=== PATIENT | female | born 1970 | race Caucasian/White ===

== ENCOUNTER 2023-11-13 14:50 | Outpatient (AMB) | payer BC, SELFPAY ==
--- NOTE | 2023-11-13 14:51 | A.OFFPC_ITS ---
Vital Signs 11/13/23 14:53 Height 5 ft 4 in Weight 133 lb 6 oz BMI 22.9 BP 126/74 Blood Pressure Location Lt brachial Position Sitting Pulse 87 Pulse Source Pulse Oximeter Pulse Oximetry (%) 96 Oxygen Delivery Method Room Air Intake Visit Reasons: NPV/ Discuss medication Allergies naproxen Allergy (Intermediate, Verified 11/13/23 14:55) Nausea and Vomiting Sulfa (Sulfonamide Antibiotics) Allergy (Intermediate, Verified 11/13/23 14:55) Hives Tobacco use date assessed: 11/13/23 Dental Screening Dental Screen Date: 11/13/23 Did you have a dental visit in the last 12 months?: Yes Did you have a dental problem in the last 6 months where you did not have access to dental care?: No Was dental information given to patient?: Patient has dentist HPI NPV/ Discuss medication HPI Details New patient Prior PCP:? Arnaud Merchant [facility], [place]bin Webb in [facility], [address] [facility] Last office visit/CPE: 1.5 yrs Acute issue(s): Needs?refill?of?escitalopram PMHx: Anxiety/Depression; on Escitalopram, Back injury SurgHx: FHx: Mom: COPD, cancer - unknown. Dad: Healthy. SocHx: Smoked only in college. EtOH weekends, 1-2 dr. Kelly CASTILLO [facility] Surgical History (Updated 11/13/23 @ 14:58 by Shanna Tony MA) H/O section Family History (Updated 11/13/23 @ 15:00 by Shanna Tony MA) Mother COPD (chronic obstructive pulmonary disease) Father Hypertension Brother Hypertension Social History (Updated 11/13/23 @ 14:58 by Shanna Tony MA) Household Members Other:: daughter Housing: House Alcohol intake: current Alcohol intake frequency: a few times a week Alcohol type: hard liquor Patient Tobacco Use Status: Never used Tobacco e-Cigarette/Vaping Use: Never Used Substance Use Type: Marijuana Current occupational status: employed Current occupation: human resources safety manager Cognitive needs: No Hearing needs: No Vision needs: Yes Questionnaire PHQ-9 Over the last 2 weeks, how often have you been bothered by any of the following problems? 1. Little interest or pleasure in doing things: nearly every day 2. Feeling down, depressed, or hopeless: several days 3. Trouble falling or staying asleep, or sleeping too much: not at all 4. Feeling tired or having little energy: not at all 5. Poor appetite or overeating: several days 6. Feeling bad about yourself - or that you are a failure or have let yourself or your family down: not at all 7. Trouble concentrating on things, such as reading the newspaper or watching television: nearly every day 8. Moving or speaking so slowly that other people could have noticed. Or the opposite - being so fidgety or restless that you have been moving around a lot more than usual: several days 9. Thoughts that you would be better off or of hurting yourself in some way: not at all Total score: 9 Depression Screening Interpretation: Positive Depression Screening Follow-up: In treatment (Taking?escitalopram-refilled. Declines?referral?for?therapy) Depression Screening Done: Yes [id number] - PHQ-9 Billing: Yes Source: Developed by Drs. Michael Mcmahon, Ester Haley, Loyd Renee and colleagues, with an educational sammy from [employer]. Thrive Questionnaire Date Thrive assessed: 11/13/23 I am a: Patient What is your living situation today?: I have a steady place to live Within the past 12 months, did the food you bought not last and you didn't have the money to get more?: Never true Within the past 12 months, did you worry whether your food would run out before you got money to buy more?: Never true Do you have trouble paying for medicines?: No Do you have trouble getting transportation to medical appointments?: No Do you have trouble paying your heating and electricity bill?: No Do you have trouble taking care of your child, family member or friend?: No Do you have trouble with day-to-day activities such as bathing, preparing meals, shopping, managing finances, etc.?: No Are you currently unemployed and looking for a job?: No Are you interested in more education?: Yes THRIVE Score: 0 AUDIT C Alcohol Use Questionnaire (AUDIT-C) 1. How often do you have a drink containing alcohol?: 2-4 times a month 2. How many drinks containing alcohol do you have on a typical day when you are drinking?: 1 or 2 3. How often do you have six or more drinks on one occasion?: Never Total Score: 2 MACEY-7 AMB Questionnaire MACEY-7 Date MACEY - 7 assessed: 11/13/23 Feeling nervous, anxious, or on edge: 2 = More than half the days Not being able to stop or control worryin = Several days Worrying too much about different things: 2 = More than half the days Trouble relaxin = Nearly every day Being so restless that it is hard to sit still: 3 = Nearly every day Becoming easily annoyed or irritable: 2 = More than half the days Feeling afraid as if something awful might happen: 0 = Not at all Total MACEY-7 score (0-4 normal; 5-9 mild; 10-14 moderate; 15-21 severe): 13 Source: Developed by Drs. Michael Mcmahon, Ester Haley, Loyd Renee and colleagues, with an educational sammy from [employer]. MACEY-7 Assessment Billing MACEY-7 Assessment Tool: MACEY-7 Assessment 84091 Review of Systems Const Denies chills, Denies fatigue, Denies fever(s), Denies headache(s) and Denies weakness ENT Denies dizziness and Denies headache(s) Card Denies chest pain, Denies lightheadedness, Denies dyspnea and Denies other (Pal pitations) Resp Denies cough, Denies dyspnea, Denies wheezing and Denies other ( shortness of breath) Musc Denies numbness and Denies tingling Neuro Denies dizziness, Denies headache(s), Denies numbness, Denies tingling, Denies paresthesias and Denies weakness Psych Denies anxiety and Denies depression Endo Denies fatigue Aller/Immun Denies wheezing Physical exam (Primary Care) Vital Signs: Last Vital Signs Pulse 87 11/13/23 14:53 BP 126/74 11/13/23 14:53 Pulse Ox 96 11/13/23 14:53 Oxygen Delivery Method Room Air 11/13/23 14:53 BMI result Body Mass Index 22.9 Tobacco/Smoking Status: Tobacco use Status Tobacco use date assessed 11/13/23 11/13/23 15:06 Patient Tobacco Use Status Never used Tobacco 11/13/23 15:06 e-Cigarette/Vaping Use Never Used 11/13/23 14:57 PHQ-9: PHQ-9 Score PHQ-9: Total score 9 11/13/23 15:15 Depression Screening Interpretation: Positive Depression Screening Follow-up: In treatment (Taking?escitalopram-refilled. Declines?referral?for?therapy) Thrive Assessment: Date of Thrive Assessment Date Thrive assessed 11/13/23 11/13/23 15:06 Const General: no acute distress and well developed Nutritional Appearance: well nourished Orientation/consciousness: patient oriented x3 HENMT Head: Yes normocephalic and Yes atraumatic Eyes General: appearance normal, both eyes and all related structures Pupils: Equal, round and reactive pupils present EOM: EOMs intact bilaterally Resp Effort & Inspection: normal respiratory effort Auscultation: clear to auscultation bilaterally Cardio Rate: regular rate Rhythm: regular rhythm Heart sounds: S1 normal heart sound present, S2 normal heart sound present, no gallops, no murmurs and no rubs Neuro General: patient oriented x3 and gait normal Cranial nerves: Yes Equal, round and reactive pupils present Psych Affect: normal affect Assessment and Plan Assessment & Plan (1) Anxiety with depression: Code(s): F41.8 - Other specified anxiety disorders Plan: Taking?escitalopram?and?this?was?refilled?today. Patient?says?she?feels?stable. Declines?referral?for?therapist She?is?also?using?medical?marijuana?which?she?says?helps. (2) Cellulitis: Code(s): L03.90 - Cellulitis, unspecified Plan: Mild?left?earlobe?cellulitis Can?start?Bactrim Warm?soaks (3) Laboratory exam ordered as part of routine general medical examination: Code(s): Z00.00 - Encounter for general adult medical examination without abnormal findings Plan: Check?lab Orders: Orders TSH reflex Free T4 Today Z00.00 - Encounter for general adult medical examination without abnormal findings UA and rflx microscopic Today Z00.00 - Encounter for general adult medical examination without abnormal findings Vitamin D 25-OH Total Today E55.9 - Vitamin D deficiency, unspecified Comprehensive [place]. Panel Fast Today Z00.00 - Encounter for general adult medical examination without abnormal findings Complete Blood Count Auto Diff Today Z00.00 - Encounter for general adult medical examination without abnormal findings Lipid Panel Today Z00.00 - Encounter for general adult medical examination without abnormal findings Microalbumin, Random (w Creat) Today I10 - Essential (primary) hypertension Medications: New escitalopram oxalate 10 mg PO DAILY 30 tabs 2RF 30 days sulfamethoxazole-trimethoprim 800-160 mg (Bactrim DS) 1 tab PO Q12H 20 tabs 0RF 10 days Coding Level of Care Code New Pt Level 3 (04709) Diagnoses Anxiety with depression F41.8 Cellulitis L03.90 Laboratory exam ordered as part of routine general medical examination Z00.00 Additional Codes MACEY-7 Assessment Billing - MACEY-7 Assessment Tool: MACEY-7 Assessment [id number] ([id number])
[2023-11-13 14:53] VITALS: BP 126/74; PULSE 87; O2SAT 96; BMI 22.9
== END 2023-11-13 15:48 | disposition home or self-care (01) ==
PROVIDERS: PCP Family Medicine; Visit Provider Family Medicine
DX: L03.90 Cellulitis, unspecified (principal); F41.8 Other specified anxiety disorders
CPT/HCPCS: 96127; 99203

== ENCOUNTER 2024-03-11 12:00 | Outpatient (AMB) | payer BC, SELFPAY ==
[2024-03-11 12:23] VITALS: BP 140/77; PULSE 78; BMI 22.2
--- NOTE | 2024-03-11 12:23 | MHC.PC.OV ---
Vital Signs 03/11/24 12:23 Height 5 ft 4 in Weight 129 lb 8 oz BMI 22.2 BP 140/77 H Blood Pressure Location Lt brachial Position Sitting Pulse 78 Pulse Source Pulse Oximeter Intake Visit Reasons: CPE Intake Note: Patient is here for her physical. She states she was not able to get her labs, will try to get it done this weekend. Patient would like 90 day refill of the escitalopram. Allergies naproxen Allergy (Intermediate, Verified 03/11/24 12:27) Nausea and Vomiting Sulfa (Sulfonamide Antibiotics) Allergy (Intermediate, Verified 03/11/24 12:27) Hives Medication List - Last Reconciled 03/11/24 by Sebas Mendoza MD escitalopram oxalate 10 mg PO DAILY 30 days Tobacco use date assessed: 11/13/23 Dental Screening Dental Screen Date: 11/13/23 HPI CPE HPI Details 53 y/o female presents for a CPE with f/u labs and health maintenance. No recent labs to review. Recent cologuard test normal. She follows up with her Ob-Computer System Technician yearly. HPI Comments History of Present Illness Details Documentation assistance for Sebas Mendoza MD, was provided by Sarbjit Mukherjee, [employer] on 03/11/2024 at 12:45 PM EST. I, Dr. Mendoza, have read, observed, and verified documentation. [facility] Surgical History (Updated 11/13/23 @ 14:58 by Shanna Tony CMA) H/O section Family History (Updated 11/13/23 @ 15:00 by Shanna Tony CMA) Mother COPD (chronic obstructive pulmonary disease) Father Hypertension Brother Hypertension Social History (Updated 11/13/23 @ 14:58 by Shanna Tony CMA) Household Members Other:: daughter Housing: House Alcohol intake: current Alcohol intake frequency: a few times a week Alcohol type: hard liquor Patient Tobacco Use Status: Never used Tobacco e-Cigarette/Vaping Use: Never Used Substance Use Type: Marijuana Current occupational status: employed Current occupation: human resources benefits administrator Cognitive needs: No Hearing needs: No Vision needs: Yes Questionnaire Thrive Questionnaire Date Thrive assessed: 11/13/23 MACEY-7 AMB Questionnaire MACEY-7 Date MACEY - 7 assessed: 11/13/23 Source: Developed by Drs. Michael Mcmahon, Ester Haley, Loyd Renee and colleagues, with an educational sammy from [employer]. Review of Systems Const Denies chills, Denies fatigue, Denies fever(s), Denies headache(s) and Denies weakness Eyes Denies change in vision ENT Denies dizziness, Denies headache(s), Denies hearing loss, Denies nasal congestion, Denies sinus pain, Denies sinus pressure and Denies sore throat Card Denies chest pain, Denies lightheadedness, Denies dyspnea and Denies other (palpitations) Resp Denies cough, Denies dyspnea and Denies wheezing GI Denies abdominal pain, Denies melena, Denies hematochezia, Denies change in bowel habits, Denies dyspepsia and Denies nausea Denies hematuria and Denies dysuria Musc Denies abnormal gait, Denies myalgias, Denies arthralgias, Denies numbness and Denies tingling Skin/Breast Denies rash, Denies unusual bruising and Denies wounds Neuro Denies abnormal gait, Denies dizziness, Denies headache(s), Denies memory loss, Denies numbness, Denies Sensory deficit (Neuro), Denies tingling and Denies weakness Psych Denies anxiety, Denies depression and Denies memory loss Endo Denies cold intolerance, Denies fatigue, Denies heat intolerance, Denies polydipsia and Denies polyuria Tres/Lymph Denies easy bleeding and Denies easy bruising Aller/Immun Denies wheezing Physical exam (Primary Care) Vital Signs: Last Vital Signs Pulse 78 03/11/24 12:23 BP 140/77 H 03/11/24 12:23 BMI result Body Mass Index 22.2 Tobacco/Smoking Status: Tobacco use Status Tobacco use date assessed 11/13/23 03/11/24 12:28 Patient Tobacco Use Status Never used Tobacco 03/11/24 12:28 e-Cigarette/Vaping Use Never Used 03/11/24 12:28 Thrive Assessment: Date of Thrive Assessment Date Thrive assessed 11/13/23 03/11/24 12:28 Const General: no acute distress, well developed, alert and awake Nutritional Appearance: well nourished Orientation/consciousness: patient oriented x3 HENMT Head: Yes normocephalic and Yes atraumatic Ears: hearing grossly normal bilaterally and TM's normal bilaterally General nose exam: Normal external nose present and Normal nares present Mouth: Normal oral and palatal mucosa present and moist mucous membranes Teeth and gingiva: dentition normal Throat: Yes posterior oropharynx normal Eyes General: appearance normal, both eyes and all related structures Pupils: Equal, round and reactive pupils present and Pupil accommodation reflex normal EOM: EOMs intact bilaterally Neck Neck: Yes normal visual inspection, Yes no lymphadenopathy and Yes trachea midline Thyroid: Thyroid normal Carotids: no bruits Lymphatic: no lymphadenopathy noted Chest Chest palpation & inspection: normal inspection of the chest Resp Effort & Inspection: normal respiratory effort Auscultation: clear to auscultation bilaterally Cardio Rate: regular rate Rhythm: regular rhythm Heart sounds: S1 normal heart sound present, S2 normal heart sound present, no gallops, no murmurs and no rubs Bruits: no abdominal aortic bruits and no carotid bruits GI Palpation (GI): No Abdominal aortic bruit present, Soft to palpation, nontender, No hepatosplenomegaly present and No Rebound tenderness present Auscultation: normal bowel sounds General: Yes no CVA tenderness Back/Spine/Pelvis Back: no CVA tenderness Cervical Spine: cervical ROM normal and No Cervical spine tenderness Thoracic/Lumbar Spine: thoraco-lumbar ROM normal, No pain with thoraco-lumbar ROM, No thoracic spinal tenderness and No lumbar spinal tenderness Skin Lesions: no lesions Rashes: no rashes Trauma: no lacerations or abrasions Wounds: no wounds Nails: normal Neuro General: patient oriented x3 Cranial nerves: Yes Equal, round and reactive pupils present Cognition (Neuro): normal cognition Gait exam (Neuro): Normal gait present Motor exam (neuro): 5/5 motor strength present throughout Sensory Exam: No Sensory deficit (Neuro) Deep tendon reflexes (DTR's): Right patellar reflex intensity grade: 2+ and Left patellar reflex intensity grade: 2+ Extrem General: Yes normal to inspection and No edema Psych Appearance: grossly normal Affect: normal affect Attitude: cooperative Thought process: Normal thought process present Assessment and Plan Assessment & Plan (1) Adult general medical exam: Code(s): Z00.00 - Encounter for general adult medical examination without abnormal findings Plan: 53-year-old?female?presents?for?complete?physical?exam Encouraged?healthy?diet?with?active?lifestyle?and?plenty?of?exercise (2) Elevated blood pressure reading: Code(s): R03.0 - Elevated blood-pressure reading, without diagnosis of hypertension Plan: Mildly?elevated?blood?pressure Blood?pressure?was?fine?at?last?visit She?will?check?her?blood?pressures?in?the?community?and?let?me?know?if?they?are?consistently?elevated We?will?follow-up?at?a?subsequent?visit (3) Screening for cervical cancer: Code(s): Z12.4 - Encounter for screening for malignant neoplasm of cervix Plan: She?is?followed?by?her?storage battery inspector?and?had?a?recent?visit Continue?Pap?[id number]?with?storage battery inspector?as?recommended (4) Screening for colon cancer: Code(s): Z12.11 - Encounter for screening for malignant neoplasm of colon Plan: Patient?had?a?Cologuard?test?about?3?years?ago?which?was?negative No?strong?family?history?of?colon?cancer Cologuard?test?ordered (5) Breast cancer screening by mammogram: Code(s): Z12.31 - Encounter for screening mammogram for malignant neoplasm of breast Plan: Overdue?for?mammogram Ordered Orders: Orders MM screening mammo BI Today Z12.31 - Encounter for screening mammogram for malignant neoplasm of breast Referrals Cologuard Test Z12.11 - Encounter for screening for malignant neoplasm of colon, Z12.12 - Encounter for screening for malignant neoplasm of rectum Coding Level of Care Code Est Pt Level 3 (60011) Est Pt Prev Care 40-64y(82486) Diagnoses Adult general medical exam Z00.00 Elevated blood pressure reading R03.0 Screening for cervical cancer Z12.4 Screening for colon cancer Z12.11 Breast cancer screening by mammogram Z12.31
== END 2024-03-11 12:50 | disposition home or self-care (01) ==
PROVIDERS: PCP Family Medicine; Visit Provider Family Medicine
DX: Z00.00 Encounter for general adult medical examination without abnormal findings (principal); R03.0 Elevated blood-pressure reading, without diagnosis of hypertension; Z12.11 Encounter for screening for malignant neoplasm of colon; Z12.31 Encounter for screening mammogram for malignant neoplasm of breast
CPT/HCPCS: 99396